=== PATIENT | female | born 1955 | race Caucasian/White ===

== ENCOUNTER 2024-06-12 06:15 | Day surgery (SDC) | payer MEDICARE, OTHER, SELFPAY ==
[2024-06-12] VITALS (7 sets, daily range): BP systolic 109–122; BP diastolic 63–81; BMI 34.2
== END 2024-06-12 18:51 | disposition home or self-care (01) ==
LOC: GI 06:15
PROVIDERS: ATTENDING PHYSICIAN Internal Medicine Gastroenterology
DX: K86.89 Other specified diseases of pancreas (principal)
CPT/HCPCS: 43237; 43239; 88305

== ENCOUNTER → 2024-08-28 11:44 | Outpatient (REF) | payer MEDICARE, OTHER, SELFPAY ==
[2024-08-28 13:02] LABS: % Basophils 0.6 % (0-2); % Eosinophils 0.5 % (0-6); % Immature Granulocytes 0.2 % (0-0.5); % Lymphocytes 24.6 % (20.5-51.1); % Monocytes 8.8 % (1.7-9.3); % Neutrophils 65.3 % (42.2-75.2); Absolute Lymphocytes 1.5 10^3/uL (1.2-3.4); Absolute Monocytes 0.5 10^3/uL (0.1-0.6); Hematocrit 41.3 % (37.0-47.0); Mean Corp Hgb Conc. 33.9 g/dL (33.0-37.0); Mean Corpuscular Hgb 32.6 pg (27.0-31.0); Mean Corpuscular Volume 96.3 fL (81.0-99.0); Mean Platelet Volume 10.8 fL (7.4-10.4); Nucleated Red Blood Cells % 0 %; Platelet Count 192 10^3/uL (130-400); Red Blood Cell Count 4.29 10^6/uL (4.20-5.40); Red Cell Dist. Width 12.9 % (11.5-14.5); White Blood Cell Count 6.2 10^3/uL (4.8-10.8)
[2024-08-28 15:05] LABS: Iron 179 ug/dl (37-170)
[2024-08-28 15:14] LABS: Percent Saturation 75 % (20-50); Total Iron Binding Capacity 237 ug/dl (265-497)
[2024-08-28 15:31] LABS: Ferritin 23.2 ng/ml (11.1-264.0)
== END ==
LOC: REG 11:44
PROVIDERS: ATTENDING PHYSICIAN Internal Medicine Hematology & Oncology; FAMILY PHYSICIAN Physician Assistant Medical
DX: E83.110 Hereditary hemochromatosis (principal)
CPT/HCPCS: 36415; 82728; 83540; 83550; 85025

== ENCOUNTER → 2025-04-29 09:33 | Outpatient (REF) | payer MEDICARE, OTHER, SELFPAY | LOC: DHSLP 09:33 | PROVIDERS: ATTENDING PHYSICIAN Nurse Practitioner Adult Health; FAMILY PHYSICIAN Physician Assistant Medical | DX: G47.61 Periodic limb movement disorder (principal); R06.83 Snoring | CPT/HCPCS: 95810 ==

== ENCOUNTER → 2025-06-02 06:47 | Outpatient (REF) | payer MEDICARE, OTHER, SELFPAY ==
[2025-06-02 10:04] LABS: Cortisol, Random 2.9 ug/dl
== END ==
LOC: HWLAB 06:47
PROVIDERS: ATTENDING PHYSICIAN Physician Assistant; FAMILY PHYSICIAN Physician Assistant Medical; OTHER PHYSICIAN Anesthesiology Pain Medicine; OTHER PHYSICIAN Neurological Surgery; OTHER PHYSICIAN Ophthalmology; REFERRING PHYSICIAN Internal Medicine Hematology & Oncology
DX: D35.2 Benign neoplasm of pituitary gland (principal)
CPT/HCPCS: 36415; 82024; 82533